=== PATIENT | male | born 1950 | race Caucasian/White ===

== ENCOUNTER 2020-07-13 10:45 | Emergency (ER) | payer OTHER ==
[2020-07-13 10:55] VITALS: BMI 21.2
[2020-07-13] MEDS ORDERED: ACETAMINOPHEN 500 MG TABLET (FP) PO ONE (11:41)
[2020-07-13] MEDS ORDERED: CASIRIVIMAB (REGN10933) 1,200 MG, IMDEVIMAB (REGN10987) 1,200 MG in SODIUM CHLORIDE 250 ML IVPB ONE (11:50)
[2020-07-13] MEDS ORDERED: ACETAMINOPHEN 500 MG TABLET (FP) ONE (12:15)
[2020-07-13 12:40] LABS: HEMATOCRIT 41.1 % (35.4-49); HEMOGLOBIN 13.6 GM/dL (11.7-16.9); MCH 29.9 pg (25.7-33.7); MCHC 33.1 g/dl (32.0-35.9); MEAN CELL VOLUME 90.3 fl (80-96); MEAN PLT VOLUME 9.6 fl (7.5-11.1); PLATELET COUNT 199 K/MM3 (134-434); RBC 4.55 M/mm3 (4.00-5.60); RDW 13.1 % (11.9-15.9); WHITE BLOOD COUNT 4.7 K/mm3 (4.0-10.0)
[2020-07-13 13:26] LABS: ALBUMIN 3.7 g/dl (3.4-5.0); BILIRUBIN,TOTAL 0.7 mg/dL (0.2-1)
[2020-07-13 13:36] LABS: POTASSIUM 4.2 mmol/L (3.5-5.1)
[2020-07-13 13:38] LABS: CALCIUM 8.5 mg/dL (8.5-10.1)
[2020-07-13 15:14] VITALS: BP 117/69; PULSE 79; TEMP 97.9
== END 2020-07-13 15:55 | disposition home or self-care (01) ==
LOC: JCOVINFU 10:45 → JER 10:45 → JCOVINFU 15:55
DX: U07.1 COVID-19 (principal)
CPT/HCPCS: 36415; 71046-TC-FY; 80053; 85027; 99284-25; M0243; Q0243

== ENCOUNTER 2023-11-30 08:44 | Emergency (ER) | payer OTHER ==
[2023-11-30 08:52] VITALS: BP 116/74; PULSE 71; RESP 16; TEMP 97.6; BMI 25.0
[2023-11-30] MEDS ORDERED: ACETAMINOPHEN INJECTION 100 ML IVPB ONE (11:34)
[2023-11-30 11:38] LABS: BASO % 0.4 % (0-2.0); EOS % 0.3 % (0-4.5); HEMATOCRIT 36.8 % (35.4-49); HEMOGLOBIN 12.6 GM/dL (11.7-16.9); LYMPH % 26.4 % (8-40); MCH 30.6 pg (25.7-33.7); MCHC 34.4 g/dl (32.0-35.9); MEAN CELL VOLUME 88.9 fl (80-96); MEAN PLT VOLUME 9.5 fl (7.5-11.1); MONO % 7.2 % (3.8-10.2); NEUT % 65.7 % (42.8-82.8); PLATELET COUNT 189 10^3/uL (134-434); RBC 4.13 M/mm3 (4.00-5.60); RDW 13.4 % (11.9-15.9); WHITE BLOOD COUNT 5.4 K/mm3 (4.0-10.0)
[2023-11-30] MEDS: SODIUM CHLORIDE 0.9% 500 ML INFUS.BAG IV ONE (11:49)
[2023-11-30] MEDS: ACETAMINOPHEN 1000 MG/100 ML BAG IVPB ONE (11:49)
[2023-11-30 11:55] LABS: POTASSIUM 4.4 mmol/L (3.5-5.1)
[2023-11-30 11:57] LABS: ALBUMIN 3.9 g/dl (3.4-5.0); BLOOD UREA NITROGEN 17.8 mg/dL (7-18)
[2023-11-30 12:00] LABS: CREATININE 1.1 mg/dL (0.55-1.3)
[2023-11-30 12:02] LABS: BILIRUBIN,TOTAL 2.1 mg/dL (0.2-1); TOT PROT 6.6 g/dl (6.4-8.2)
[2023-11-30] MEDS ORDERED: MAGNESIUM HYDROX 2400MG/30ML ORAL SUSPENSION 30 ML CUP ONE (13:33)
[2023-11-30] MEDS: MAGNESIUM HYDROX 2400MG/30ML ORAL SUSPENSION 30 ML CUP PO ONE (13:37)
== END 2023-11-30 14:19 | disposition home or self-care (01) ==
LOC: JER 08:44
PROC: 3E033NZ Introduction of Analgesics, Hypnotics, Sedatives into Peripheral Vein, Percutaneous Approach (ICD-10-PCS; principal; 2023-11-30)
DX: R10.32 Left lower quadrant pain (principal); R68.83 Chills (without fever); R53.83 Other fatigue; R11.0 Nausea
CPT/HCPCS: 36415; 74177-TC; 80053; 83690; 84484; 85025; 93005; 93010; 99285-25; J0131; Q9967

== ENCOUNTER 2023-12-11 22:13 | Emergency (ER) | payer OTHER ==
[2023-12-11 22:18] VITALS: BP 129/76; PULSE 69; RESP 18; TEMP 98.2; BMI 23.1
[2023-12-11] MEDS ORDERED: ACETAMINOPHEN INJECTION 100 ML IVPB ONE (22:59)
[2023-12-11] MEDS: SODIUM CHLORIDE 0.9% 500 ML INFUS.BAG IV ONE (23:23)
[2023-12-11] MEDS: ACETAMINOPHEN 1000 MG/100 ML BAG IVPB ONE (23:23)
[2023-12-11 23:26] LABS: BASO % 0.5 % (0-2.0); HEMATOCRIT 35.3 % (35.4-49); HEMOGLOBIN 12.2 GM/dL (11.7-16.9); MCH 30.6 pg (25.7-33.7); MCHC 34.4 g/dl (32.0-35.9); MEAN CELL VOLUME 88.7 fl (80-96); MONO % 9.5 % (3.8-10.2); PLATELET COUNT 222 10^3/uL (134-434); RBC 3.98 M/mm3 (4.00-5.60); RDW 13.7 % (11.9-15.9); WHITE BLOOD COUNT 6.4 K/mm3 (4.0-10.0)
[2023-12-11 23:27] LABS: URINE APPEARANCE CLEAR; URINE BILIRUBIN NEGATIVE (NEGATIVE); URINE COLOR YELLOW; URINE GLUCOSE (UA) NEGATIVE (NEGATIVE); URINE KETONE NEGATIVE (NEGATIVE); URINE LEUK ESTERASE NEGATIVE (NEGATIVE); URINE NITRITE NEGATIVE (NEGATIVE); URINE PROTEIN NEGATIVE (NEGATIVE); URINE UROBILINOGEN 0.2 mg/dL (0.2-1.0)
[2023-12-11 23:41] LABS: POTASSIUM 3.9 mmol/L (3.5-5.1)
[2023-12-11 23:42] LABS: ALBUMIN 3.9 g/dl (3.4-5.0); BLOOD UREA NITROGEN 16.9 mg/dL (7-18); MAGNESIUM 2.3 mg/dL (1.8-2.4)
[2023-12-11 23:46] LABS: CREATININE 1.2 mg/dL (0.55-1.3)
[2023-12-11 23:47] LABS: BILIRUBIN,TOTAL 2.2 mg/dL (0.2-1); TOT PROT 6.5 g/dl (6.4-8.2)
[2023-12-12] MEDS ORDERED: METOCLOPRAMIDE HCL INJECTION 10 MG/2 ML VIAL ONE (02:13)
[2023-12-12] MEDS: METOCLOPRAMIDE HCL INJECTION 10 MG/2 ML VIAL IVPUSH ONE (02:30)
== END 2023-12-12 05:36 | disposition home or self-care (01) ==
LOC: JER 22:13
PROC: 3E033NZ Introduction of Analgesics, Hypnotics, Sedatives into Peripheral Vein, Percutaneous Approach (ICD-10-PCS; principal; 2023-12-11)
PROC: 3E033GC Introduction of Other Therapeutic Substance into Peripheral Vein, Percutaneous Approach (ICD-10-PCS; 2023-12-11)
DX: N20.0 Calculus of kidney (principal); R10.32 Left lower quadrant pain
CPT/HCPCS: 36415; 74177-TC; 80053; 81003; 83605; 83690; 83735; 85025; 87086; 93005; 93010; 99285-25; J0131

== ENCOUNTER 2024-01-09 09:29 | Observation (INO) | payer OTHER ==
[2024-01-09 10:43] LABS: BASO % 0.4 % (0-2.0); EOS % 0.3 % (0-4.5); HEMATOCRIT 37.6 % (35.4-49); HEMOGLOBIN 12.6 GM/dL (11.7-16.9); LYMPH % 18.6 % (8-40); MCH 30.4 pg (25.7-33.7); MCHC 33.4 g/dl (32.0-35.9); MEAN CELL VOLUME 90.8 fl (80-96); MEAN PLT VOLUME 9.3 fl (7.5-11.1); MONO % 8.5 % (3.8-10.2); NEUT % 72.2 % (42.8-82.8); PLATELET COUNT 199 10^3/uL (134-434); RBC 4.14 M/mm3 (4.00-5.60); RDW 14.3 % (11.9-15.9); WHITE BLOOD COUNT 5.2 K/mm3 (4.0-10.0)
[2024-01-09 11:03] LABS: POTASSIUM 3.9 mmol/L (3.5-5.1)
[2024-01-09 11:05] LABS: CALCIUM 9.1 mg/dL (8.5-10.1)
[2024-01-09 11:06] LABS: ALBUMIN 3.9 g/dl (3.4-5.0); BLOOD UREA NITROGEN 23.9 mg/dL (7-18); MAGNESIUM 2.3 mg/dL (1.8-2.4)
[2024-01-09 11:09] LABS: CREATININE 1.1 mg/dL (0.55-1.3)
[2024-01-09 11:10] LABS: BILIRUBIN,TOTAL 2.1 mg/dL (0.2-1); TOT PROT 6.5 g/dl (6.4-8.2)
[2024-01-09] MEDS: SODIUM CHLORIDE 0.9% 500 ML INFUS.BAG IV ONE (11:20)
[2024-01-09 11:53] LABS: URINE APPEARANCE CLEAR; URINE BILIRUBIN NEGATIVE (NEGATIVE); URINE COLOR DK YELLOW; URINE GLUCOSE (UA) NEGATIVE (NEGATIVE); URINE KETONE NEGATIVE (NEGATIVE); URINE LEUK ESTERASE NEGATIVE (NEGATIVE); URINE NITRITE NEGATIVE (NEGATIVE); URINE PROTEIN NEGATIVE (NEGATIVE)
[2024-01-09 12:12] LABS: HIV INTERPRETATION NEGATIVE (NEGATIVE)
[2024-01-09 15:31] LABS: BILIRUBIN,DIRECT 0.4 mg/dL (0.0-0.2)
[2024-01-09] MEDS ORDERED: ACETAMINOPHEN INJECTION 100 ML ONE (16:25)
[2024-01-09] MEDS: ACETAMINOPHEN 1000 MG/100 ML BAG IVPB ONE (16:29)
[2024-01-10] MEDS: ENOXAPARIN NA (PORCINE) 40 MG/0.4 ML DISP.SYRIN SQ SCH (10:06)
[2024-01-10] MEDS: CYANOCOBALAMIN (VITAMIN B-12) 1000 MCG/1 ML VIAL IM SCH (10:06)
[2024-01-10] MEDS: ACETAMINOPHEN 1000 MG/100 ML BAG IVPB PRN (10:16)
[2024-01-11 08:33] LABS: BASO % 0.2 % (0-2.0); HEMATOCRIT 35.4 % (35.4-49); HEMOGLOBIN 12.2 GM/dL (11.7-16.9); LYMPH % 26.4 % (8-40); MCH 30.8 pg (25.7-33.7); MCHC 34.5 g/dl (32.0-35.9); MEAN CELL VOLUME 89.4 fl (80-96); MEAN PLT VOLUME 10.1 fl (7.5-11.1); MONO % 8.4 % (3.8-10.2); PLATELET COUNT 187 10^3/uL (134-434); RBC 3.96 M/mm3 (4.00-5.60); RDW 14.1 % (11.9-15.9); WHITE BLOOD COUNT 5.1 K/mm3 (4.0-10.0)
[2024-01-11 08:53] LABS: POTASSIUM 3.9 mmol/L (3.5-5.1)
[2024-01-11 08:59] LABS: CALCIUM 8.8 mg/dL (8.5-10.1)
[2024-01-11 09:00] LABS: ALBUMIN 3.7 g/dl (3.4-5.0); BLOOD UREA NITROGEN 17.3 mg/dL (7-18); MAGNESIUM 2.3 mg/dL (1.8-2.4)
[2024-01-11 09:03] LABS: CREATININE 1.2 mg/dL (0.55-1.3); PHOSPHOROUS 2.9 mg/dL (2.5-4.9)
[2024-01-11 09:04] LABS: BILIRUBIN,TOTAL 1.7 mg/dL (0.2-1); TOT PROT 6.1 g/dl (6.4-8.2)
[2024-01-11] MEDS: DULoxetine HCL 30 MG CAPSULE.DR PO SCH (10:18)
[2024-01-11] MEDS: DEXTROSE 5%-0.45% SALINE 1,000 ML IV SCH (10:18)
[2024-01-11] MEDS: PEG 3350/NA SULF BICARB CL/KCL 4000 ML SOLN.RECON PO ONE (15:19)
[2024-01-11 16:23] VITALS: BMI 20.4
[2024-01-11 21:09] LABS: COCAINE, UR NEGATIVE (NEGATIVE); URINE BENZODIAZEPINES NEGATIVE (NEGATIVE)
[2024-01-11 21:10] LABS: METHADONE, UR NEGATIVE (NEGATIVE); OPIATES, URI NEGATIVE (NEGATIVE); PHENCYCLIDINE,URINE NEGATIVE (NEGATIVE)
[2024-01-11 21:12] LABS: URINE AMPHETAMINES NEGATIVE (NEGATIVE); URINE BARBITURATES NEGATIVE (NEGATIVE)
[2024-01-12 09:35] LABS: POTASSIUM 4.1 mmol/L (3.5-5.1)
[2024-01-12 09:39] LABS: ALBUMIN 3.9 g/dl (3.4-5.0); CALCIUM 9.1 mg/dL (8.5-10.1)
[2024-01-12 09:44] LABS: TOT PROT 6.4 g/dl (6.4-8.2)
[2024-01-12 10:11] LABS: BASO % 0.6 % (0-2.0); EOS % 0.4 % (0-4.5); HEMATOCRIT 35.9 % (35.4-49); HEMOGLOBIN 12.5 GM/dL (11.7-16.9); LYMPH % 20.8 % (8-40); MCH 30.9 pg (25.7-33.7); MCHC 34.8 g/dl (32.0-35.9); MEAN CELL VOLUME 88.8 fl (80-96); MONO % 7.2 % (3.8-10.2); PLATELET COUNT 201 10^3/uL (134-434); RBC 4.04 M/mm3 (4.00-5.60); RDW 14.3 % (11.9-15.9); RETICULOCYTES 0.19 % (0.5-1.5); WHITE BLOOD COUNT 5.5 K/mm3 (4.0-10.0)
[2024-01-13 07:21] LABS: HEMATOCRIT 34.7 % (35.4-49); HEMOGLOBIN 11.9 GM/dL (11.7-16.9); MCH 30.6 pg (25.7-33.7); MCHC 34.4 g/dl (32.0-35.9); MEAN CELL VOLUME 89.1 fl (80-96); MEAN PLT VOLUME 9.7 fl (7.5-11.1); PLATELET COUNT 181 10^3/uL (134-434); RDW 14.1 % (11.9-15.9); WHITE BLOOD COUNT 5.1 K/mm3 (4.0-10.0)
[2024-01-13 07:41] LABS: POTASSIUM 4.1 mmol/L (3.5-5.1)
[2024-01-13 07:43] LABS: ALBUMIN 3.5 g/dl (3.4-5.0); CALCIUM 9.1 mg/dL (8.5-10.1)
[2024-01-13 07:44] LABS: BLOOD UREA NITROGEN 13.7 mg/dL (7-18); MAGNESIUM 2.2 mg/dL (1.8-2.4)
[2024-01-13 07:47] LABS: PHOSPHOROUS 3.5 mg/dL (2.5-4.9)
[2024-01-13 07:48] LABS: BILIRUBIN,TOTAL 1.4 mg/dL (0.2-1); TOT PROT 5.8 g/dl (6.4-8.2)
[2024-01-13] MEDS: ACETAMINOPHEN 325 MG TABLET (FP) PO PRN (18:17)
[2024-01-14] MEDS: SODIUM CHLORIDE 1,000 ML IV STA (10:11)
[2024-01-14] MEDS: SUCRALFATE 1 GM/10 ML UNIT DOSE CUPS PO SCH (16:28)
[2024-01-14] MEDS: SODIUM CHLORIDE 1,000 ML IV SCH (18:35)
[2024-01-15] MEDS: FLUDROCORTISONE ACETATE 0.1 MG TABLET (FP) PO SCH (12:43)
[2024-01-16 09:10] LABS: POTASSIUM 4.2 mmol/L (3.5-5.1)
[2024-01-16 09:15] LABS: ALBUMIN 3.9 g/dl (3.4-5.0)
[2024-01-16 09:16] LABS: BLOOD UREA NITROGEN 14.8 mg/dL (7-18)
[2024-01-16 09:18] LABS: CREATININE 0.9 mg/dL (0.55-1.3)
[2024-01-16 09:20] LABS: BILIRUBIN,TOTAL 1.1 mg/dL (0.2-1); TOT PROT 6.4 g/dl (6.4-8.2)
[2024-01-17] MEDS: FLUDROCORTISONE ACETATE 0.1 MG TABLET (FP) PO SCH (10:58)
[2024-01-17 14:07] VITALS: RESP 19
[2024-01-17 17:34] VITALS: BP 109/64; PULSE 86; TEMP 98.8
== END 2024-01-17 17:44 | disposition home or self-care (01) ==
LOC: JER 09:29 → JERBED 19:45 → J4S 22:39
PROVIDERS: ADMIT Internal Medicine; ATTEND Internal Medicine
PROC: 3E023GC Introduction of Other Therapeutic Substance into Muscle, Percutaneous Approach (ICD-10-PCS; principal; 2024-01-09)
PROC: 3E033NZ Introduction of Analgesics, Hypnotics, Sedatives into Peripheral Vein, Percutaneous Approach (ICD-10-PCS; 2024-01-09)
PROC: 3E0337Z Introduction of Electrolytic and Water Balance Substance into Peripheral Vein, Percutaneous Approach (ICD-10-PCS; 2024-01-09)
PROC: 0DJD8ZZ Inspection of Lower Intestinal Tract, Via Natural or Artificial Opening Endoscopic (ICD-10-PCS; 2024-01-09)
PROC: 0DB98ZX Excision of Duodenum, Via Natural or Artificial Opening Endoscopic, Diagnostic (ICD-10-PCS; 2024-01-12)
PROC: 0DB68ZX Excision of Stomach, Via Natural or Artificial Opening Endoscopic, Diagnostic (ICD-10-PCS; 2024-01-12)
DX: E53.8 Deficiency of other specified B group vitamins (principal); R63.4 Abnormal weight loss; F41.8 Other specified anxiety disorders; R10.32 Left lower quadrant pain; R62.7 Adult failure to thrive; K57.90 Diverticulosis of intestine, part unspecified, without perforation or abscess without bleeding; E80.6 Other disorders of bilirubin metabolism; Z91.199 Patient's noncompliance with other medical treatment and regimen due to unspecified reason; K58.9 Irritable bowel syndrome, unspecified; Z87.442 Personal history of urinary calculi
CPT/HCPCS: 0241U-QW; 36415; 71046-TC-FY; 74176-TC; 74181-TC; 76700-TC; 80053; 80307; 81003; 82248; 82533; 82607; 82746; 83010; 83690; 83735; 84100; 84443; 84484; 85025; 85027; 85045; 86340; 86704; 86803; 87086; 87209; 87340; 87389; 87517; 88305-TC; 88342-TC; 93005; 93010; 96361; 96372; 96374; 96376; 99285-25; G0378; J0131

== ENCOUNTER 2024-01-19 20:59 | Emergency (ER) | payer OTHER ==
[2024-01-19 21:14] VITALS: RESP 17; TEMP 97.9; BMI 21.7
[2024-01-19 22:14] LABS: BASO % 0.4 % (0-2.0); EOS % 0.7 % (0-4.5); HEMATOCRIT 35.7 % (35.4-49); HEMOGLOBIN 11.8 GM/dL (11.7-16.9); LYMPH % 24.4 % (8-40); MCH 30.6 pg (25.7-33.7); MCHC 33.1 g/dl (32.0-35.9); MEAN CELL VOLUME 92.3 fl (80-96); MEAN PLT VOLUME 9.5 fl (7.5-11.1); MONO % 10.2 % (3.8-10.2); NEUT % 64.3 % (42.8-82.8); PLATELET COUNT 197 10^3/uL (134-434); RBC 3.87 M/mm3 (4.00-5.60); WHITE BLOOD COUNT 8.1 K/mm3 (4.0-10.0)
[2024-01-19 22:48] LABS: POTASSIUM 4.4 mmol/L (3.5-5.1)
[2024-01-19 22:50] LABS: CALCIUM 9.1 mg/dL (8.5-10.1)
[2024-01-19 22:51] LABS: ALBUMIN 3.9 g/dl (3.4-5.0); BLOOD UREA NITROGEN 25.3 mg/dL (7-18)
[2024-01-19 22:54] LABS: CREATININE 1.2 mg/dL (0.55-1.3)
[2024-01-19 22:55] LABS: BILIRUBIN,TOTAL 0.7 mg/dL (0.2-1)
[2024-01-19 22:56] LABS: TOT PROT 6.5 g/dl (6.4-8.2)
[2024-01-19 23:28] VITALS: BP 157/86; PULSE 66
[2024-01-19] MEDS ORDERED: KETOROLAC TROMETHAMINE 15 MG/ML VIAL ONE (23:49)
[2024-01-19] MEDS ORDERED: ACETAMINOPHEN INJECTION 100 ML ONE (23:49)
[2024-01-19] MEDS: ACETAMINOPHEN 1000 MG/100 ML BAG IVPB ONE (23:59)
[2024-01-19] MEDS: KETOROLAC TROMETHAMINE 30 MG/1 ML VIAL IVPUSH ONE (23:59)
[2024-01-20 00:14] LABS: PH,URINE 6.5 (5.0-8.0); URINE APPEARANCE CLEAR; URINE BILIRUBIN NEGATIVE (NEGATIVE); URINE COLOR YELLOW; URINE GLUCOSE (UA) NEGATIVE (NEGATIVE); URINE KETONE NEGATIVE (NEGATIVE); URINE LEUK ESTERASE NEGATIVE (NEGATIVE); URINE NITRITE NEGATIVE (NEGATIVE); URINE PROTEIN NEGATIVE (NEGATIVE); URINE UROBILINOGEN 0.2 mg/dL (0.2-1.0)
[2024-01-20 05:28] LABS: COCAINE, UR NEGATIVE (NEGATIVE); METHADONE, UR NEGATIVE (NEGATIVE)
[2024-01-20 05:29] LABS: PHENCYCLIDINE,URINE NEGATIVE (NEGATIVE)
[2024-01-20 05:54] LABS: OPIATES, URI NEGATIVE (NEGATIVE); URINE BARBITURATES NEGATIVE (NEGATIVE); URINE BENZODIAZEPINES NEGATIVE (NEGATIVE)
[2024-01-20 13:37] LABS: URINE AMPHETAMINES NEGATIVE (NEGATIVE)
== END 2024-01-20 02:52 | disposition home or self-care (01) ==
LOC: JER 20:59
PROC: 3E033NZ Introduction of Analgesics, Hypnotics, Sedatives into Peripheral Vein, Percutaneous Approach (ICD-10-PCS; principal; 2024-01-19)
PROC: 3E0333Z Introduction of Anti-inflammatory into Peripheral Vein, Percutaneous Approach (ICD-10-PCS; 2024-01-19)
DX: S06.0X0A Concussion without loss of consciousness, initial encounter (principal); M54.2 Cervicalgia; W10.1XXA Fall (on)(from) sidewalk curb, initial encounter; Y93.01 Activity, walking, marching and hiking
CPT/HCPCS: 36415; 70450-TC; 71045-TC-FY; 72040-TC; 72125-TC; 80053; 80307; 81003; 82962; 84484; 85025; 93005; 93010; 96374; 96375; 99285-25; J0131

== ENCOUNTER 2024-01-27 15:48 | Emergency (ER) | payer OTHER ==
[2024-01-27 16:06] VITALS: BMI 21.1
[2024-01-27] MEDS ORDERED: ACETAMINOPHEN 500 MG TABLET (FP) ONE (17:45)
[2024-01-27] MEDS: ACETAMINOPHEN 500 MG TABLET (FP) PO ONE (17:48)
[2024-01-27 18:07] LABS: BASO % 0.2 % (0-2.0); EOS % 0.3 % (0-4.5); HEMOGLOBIN 12.2 GM/dL (11.7-16.9); LYMPH % 22.2 % (8-40); MCH 30.7 pg (25.7-33.7); MEAN CELL VOLUME 90.3 fl (80-96); MEAN PLT VOLUME 9.1 fl (7.5-11.1); MONO % 8.6 % (3.8-10.2); NEUT % 68.7 % (42.8-82.8); PLATELET COUNT 223 10^3/uL (134-434); RBC 3.99 M/mm3 (4.00-5.60); RDW 14.7 % (11.9-15.9); WHITE BLOOD COUNT 6.8 K/mm3 (4.0-10.0)
[2024-01-27 18:23] LABS: POTASSIUM 4.1 mmol/L (3.5-5.1)
[2024-01-27 18:25] LABS: CALCIUM 8.6 mg/dL (8.5-10.1)
[2024-01-27 18:26] LABS: ALBUMIN 3.8 g/dl (3.4-5.0); BLOOD UREA NITROGEN 15.2 mg/dL (7-18)
[2024-01-27 18:31] LABS: BILIRUBIN,TOTAL 1.3 mg/dL (0.2-1); TOT PROT 6.8 g/dl (6.4-8.2)
[2024-01-27] MEDS ORDERED: KETOROLAC TROMETHAMINE 15 MG/ML VIAL ONE (20:02)
[2024-01-27] MEDS: KETOROLAC TROMETHAMINE 30 MG/1 ML VIAL IVPUSH ONE (20:09)
[2024-01-27 20:17] VITALS: BP 120/76; PULSE 71; RESP 18; TEMP 98.6
== END 2024-01-27 20:18 | disposition home or self-care (01) ==
LOC: JER 15:48
PROC: 3E0333Z Introduction of Anti-inflammatory into Peripheral Vein, Percutaneous Approach (ICD-10-PCS; principal; 2024-01-27)
DX: R42 Dizziness and giddiness (principal); R51.9 Headache, unspecified; M25.552 Pain in left hip; W10.8XXA Fall (on) (from) other stairs and steps, initial encounter
CPT/HCPCS: 36415; 70450-TC; 72125-TC; 73502-TC-LT-FY; 80053; 82607; 84484; 85025; 93005; 93010; 96374; 99285-25

== ENCOUNTER 2025-01-12 11:11 | Observation (INO) | payer OTHER ==
[2025-01-12 12:54] LABS: ABSOLUTE IMMATURE GRANULOCYTES 0.01 x10^3/uL (0.0-0.031); BASOPHILS # 0.02 x10^3/uL (0.01-0.08); EOSINOPHIL % 0.5 % (0.8-7.0); EOSINOPHILS # 0.03 x10^3/uL (0.04-0.54); MCHC 32.3 g/dl (32.3-36.5); MEAN CELL VOLUME 92.9 fl (79.0-92.2); MEAN PLT VOLUME 11.0 fl (9.4-12.4); MONOCYTE # 0.42 x10^3/uL (0.30-0.82); MONOCYTE % 7.2 % (5.3-12.2); RDW 12.3 % (12.2-16.6)
[2025-01-12] MEDS: SODIUM CHLORIDE 0.9% 500 ML INFUS.BAG IV ONE (13:09)
[2025-01-12 13:10] LABS: URINE APPEARANCE CLEAR; URINE BILIRUBIN NEGATIVE (NEGATIVE); URINE COLOR YELLOW; URINE GLUCOSE (UA) NEGATIVE (NEGATIVE); URINE KETONE TRACE (NEGATIVE); URINE LEUK ESTERASE NEGATIVE (NEGATIVE); URINE NITRITE NEGATIVE (NEGATIVE); URINE PROTEIN NEGATIVE (NEGATIVE); URINE UROBILINOGEN 0.2 mg/dL (0.2-1.0)
[2025-01-12] MEDS ORDERED: ACETAMINOPHEN INJECTION 100 ML ONE (13:21)
[2025-01-12] MEDS: ACETAMINOPHEN 1000 MG/100 ML BAG IVPB ONE (13:22)
[2025-01-12 13:38] LABS: ERYTHROCYTE SEDIMENTATION RATE 2 mm/hr (0-20)
[2025-01-12 14:26] LABS: GLUCOSE,RANDOM 98.0 mg/dL (74-106); TOT PROT 6.8 g/dl (6.4-8.2)
[2025-01-12 14:27] LABS: CO2 21.0 mmol/L (21-32)
[2025-01-12 14:29] LABS: ALK PHOS 69.0 U/L (40-150)
[2025-01-12 14:32] LABS: CREATININE 1.34 mg/dL (0.55-1.3); SGOT/AST 23.0 U/L (5-34); SGPT/ALT 14.0 U/L (0-55)
[2025-01-12 17:02] LABS: HIV INTERPRETATION NEGATIVE (NEGATIVE)
[2025-01-12 17:03] LABS: HCV DIAGNOSTIC IN-HOUSE W/RFLX NON-REACTIVE (NONREACTIVE)
[2025-01-12] MEDS: LACTATED RINGERS SOLUTION 1,000 ML/1,000 ML INFUS.BAG IV SCH (17:43)
[2025-01-12] MEDS: MAGNESIUM HYDROX 2400MG/30ML ORAL SUSPENSION 30 ML CUP PO ONE (17:43)
[2025-01-12] MEDS ORDERED: MAGNESIUM HYDROX 2400MG/30ML ORAL SUSPENSION 30 ML CUP ONE (17:54)
[2025-01-12 20:19] VITALS: BMI 21.7
[2025-01-13] MEDS: ACETAMINOPHEN 500 MG TABLET (FP) PO PRN (06:09)
[2025-01-13 08:14] LABS: ABSOLUTE IMMATURE GRANULOCYTES 0.02 x10^3/uL (0.0-0.031); BASOPHILS # 0.02 x10^3/uL (0.01-0.08); EOSINOPHIL % 0.6 % (0.8-7.0); EOSINOPHILS # 0.05 x10^3/uL (0.04-0.54); MCHC 32.5 g/dl (32.3-36.5); MEAN CELL VOLUME 93.2 fl (79.0-92.2); MEAN PLT VOLUME 10.8 fl (9.4-12.4); MONOCYTE # 0.56 x10^3/uL (0.30-0.82); MONOCYTE % 7.0 % (5.3-12.2); RDW 12.2 % (12.2-16.6)
[2025-01-13 08:57] LABS: GLUCOSE,RANDOM 95.0 mg/dL (74-106)
[2025-01-13 09:02] LABS: CREATININE 1.05 mg/dL (0.55-1.3)
[2025-01-13 09:14] LABS: CO2 21.0 mmol/L (21-32)
[2025-01-13] MEDS: POLYETHYLENE GLYCOL (HEALTHYLAX) 3350 17 GM PACKET PO SCH ×2 (09:35→13:22)
[2025-01-13] MEDS: SODIUM CHLORIDE 1,000 ML IV SCH (10:15)
[2025-01-13 16:00] LABS: TOT PROT 6.8 g/dl (6.4-8.2)
[2025-01-13 16:02] LABS: ALK PHOS 69.0 U/L (40-150)
[2025-01-13 16:05] LABS: SGOT/AST 22.0 U/L (5-34); SGPT/ALT 13.0 U/L (0-55)
[2025-01-13] MEDS: BISACODYL 10 MG SUPP.RECT PR ONE (16:50)
[2025-01-13] MEDS: FLUDROCORTISONE ACETATE 0.1 MG TABLET (FP) PO SCH (21:25)
[2025-01-13] MEDS: HEPARIN NA (PORCINE) 5,000 UNITS/ML 1ML VIAL SQ SCH (21:25)
[2025-01-13] MEDS: MAGNESIUM CITRATE 300 ML BOTTLE PO ONE (22:11)
[2025-01-14 07:36] LABS: ABSOLUTE IMMATURE GRANULOCYTES 0.01 x10^3/uL (0.0-0.031); BASOPHILS # 0.02 x10^3/uL (0.01-0.08); EOSINOPHIL % 1.8 % (0.8-7.0); EOSINOPHILS # 0.11 x10^3/uL (0.04-0.54); MCHC 32.7 g/dl (32.3-36.5); MEAN CELL VOLUME 93.7 fl (79.0-92.2); MEAN PLT VOLUME 11.3 fl (9.4-12.4); MONOCYTE # 0.53 x10^3/uL (0.30-0.82); MONOCYTE % 8.5 % (5.3-12.2); RDW 12.4 % (12.2-16.6)
[2025-01-14 07:48] LABS: GLUCOSE,RANDOM 88.0 mg/dL (74-106); TOT PROT 6.5 g/dl (6.4-8.2)
[2025-01-14 07:49] LABS: CO2 26.0 mmol/L (21-32)
[2025-01-14 07:51] LABS: ALK PHOS 70.0 U/L (40-150)
[2025-01-14 07:53] LABS: SGPT/ALT 14.0 U/L (0-55)
[2025-01-14 07:54] LABS: CREATININE 1.07 mg/dL (0.55-1.3); SGOT/AST 21.0 U/L (5-34)
[2025-01-14 10:10] VITALS: BP 136/79; PULSE 77; RESP 17; TEMP 98.1
== END 2025-01-14 14:00 | disposition home or self-care (01) ==
LOC: JER 11:11 → JERBED 17:24 → J8W 18:50
PROVIDERS: ADMIT Internal Medicine; ATTEND Nurse Practitioner Family
PROC: 3E033NZ Introduction of Analgesics, Hypnotics, Sedatives into Peripheral Vein, Percutaneous Approach (ICD-10-PCS; principal; 2025-01-12)
PROC: 3E023GC Introduction of Other Therapeutic Substance into Muscle, Percutaneous Approach (ICD-10-PCS; 2025-01-12)
PROC: 3E0337Z Introduction of Electrolytic and Water Balance Substance into Peripheral Vein, Percutaneous Approach (ICD-10-PCS; 2025-01-12)
DX: K56.41 Fecal impaction (principal); G45.0 Vertebro-basilar artery syndrome; F41.8 Other specified anxiety disorders; I45.10 Unspecified right bundle-branch block; D64.9 Anemia, unspecified; N40.0 Benign prostatic hyperplasia without lower urinary tract symptoms; R42 Dizziness and giddiness; Z87.442 Personal history of urinary calculi; R53.1 Weakness
CPT/HCPCS: 36415; 70450-TC; 70551-TC; 71046-TC-FY; 74177-TC; 80048; 80053; 80076; 81003; 83735; 84484; 85025; 85651; 86140; 86803; 87086; 87389; 93005; 93010; 93880-TC; 96361; 96372; 96374; 97116-GP; 97161-GP; 99285-25; G0378; Q9967